=== PATIENT | male | born 1935 | race Caucasian/White ===

== ENCOUNTER → 2016-04-28 | Outpatient (REF) | payer MEDICARE, MEDICAID ==
[~2016-04-28] MED LIST: /TAMS4CA PO; ACET50TA PO; ACET650S3 PR; ALLO300T OR; AMLO10TA PO; ASPI1TAB PO; ASPI81TA83 OR; ATEN25TA OR; ATEN25TA PO; BACITAB3 PO; BISA10SU4 PR; BISAC5TA PO; CALC1CAP31 PO; CARV6.25 PO; CEPA3LOZ PO; CETI10TA PO; CLONI1TA PO; CLONIDINE PO; CORE3.12 PO; DULC5TAB PO; EMLA2.5C TOP; ENEMENE3 PR; FERR140T PO; FIRS1SOL3 PO; FLOM5CAP PO; GABA-279 PO; GLIP5TAB15 PO; GLIP5TAB2 PO; GLIP5TAB8 PO; GLUC5TAB3 PO; HYDR-4266 PO; HYDR100T13 PO; HYDR50TA PO; IBUP200C PO; IPRASOL4 NEB; ISOS1TAB12 PO; KEFL500C7 PO; LASI40TA PO; LASIX PO; LEVO25TA2 OR; LEVO25TA5 PO; LOVAZA PO; MAGN250T9 PO; MICR10CA PO; MUCI600T34 PO; MULTIVIT PO; NEPHTAB PO; NEPRLIQ PO; NITR4TASL SL; NITRO PO; NITRSPR10 TL; OMAC1CA PO; OMEG100011 PO; OMEP20CA3 PO; PERCOCET PO; PLAV75TA2 OR; PROS5TAB PO; PROSCAR PO; PROTPAK PO; RED YEAST RICE PO; REDCAP9 PO; RENV2TAB PO; SENN8.6T8 PO; SENO8.6T10 PO; TAMS0.4C2 PO; TENO25TA PO; TUSSLIQ PO; TYLE325T5 PO; TYLE650T30 PO; VENO20IN IV; VESI5TAB PO; VITA20008 PO; VITAMIN D PO; VITMTA PO; ZETI10TA OR; ZETI10TA2 PO; ZYLO300T PO; [UNRECOGNIZED DRUG - CODE] PO; [UNRECOGNIZED DRUG - CODE] PR; aranesp IV; azithromycin OR; isordil PO; novolog insulin SQ
== END ==
LOC: SKLAB7 08:00
PROVIDERS: ATTEND Family Medicine
DX: E03.9 Hypothyroidism, unspecified (principal)

== ENCOUNTER → 2016-06-23 | Outpatient (REF) | payer MEDICARE, MEDICAID | LOC: SKLAB7 07:00 | PROVIDERS: ATTEND Family Medicine | DX: E11.9 Type 2 diabetes mellitus without complications (principal) ==

== ENCOUNTER → 2016-08-30 | Outpatient (REF) | payer MEDICARE, MEDICAID ==
[2016-08-30 14:41] LABS: ALBUMIN 2.9 GM/DL (3.2-5.2); ALBUMIN/GLOBULIN RATIO 0.66 (1.00-1.93); BILIRUBIN,TOTAL 0.8 MG/DL (0.2-1.0); CALCIUM LEVEL 8.5 MG/DL (8.8-10.2); CREATININE FOR GFR 7.04 MG/DL (0.70-1.30); POTASSIUM SERUM 3.5 MEQ/L (3.5-5.1); TOTAL PROTEIN 7.3 GM/DL (6.4-8.2)
[2016-08-30 15:35] LABS: BASO # 0.1 K/mm3 (0.0-0.2); BASO % 0.5 % (0.0-1.0); EOS % 0.3 % (0.0-3.0); LARGE UNSTAINED CELL # 0.2 K/mm3 (0.0-0.4); LARGE UNSTAINED CELL % 1.3 % (0.0-4.0); LYMPH % 7.8 % (24.0-44.0); MEAN CORPUSCULAR HEMOGLOBIN 31.4 pg (27.0-33.0); MEAN CORPUSCULAR HGB CONC 33.3 g/dl (32.0-36.5); MEAN CORPUSCULAR VOLUME 94.2 fl (80.0-96.0); MONO # 0.9 K/mm3 (0.0-0.8); MONO % 7.2 % (0.0-5.0); NEUTROPHILS # 10.8 K/mm3 (1.8-7.7); NEUTROPHILS % 82.8 % (36.0-66.0); PLATELET COUNT, AUTOMATED 182 k/mm3 (150-450); RED CELL DISTRIBUTION WIDTH 14.3 % (11.5-14.5)
== END ==
LOC: SKLAB7 13:37
PROVIDERS: ATTEND Family Medicine
DX: R50.9 Fever, unspecified (principal)

== ENCOUNTER → 2016-09-01 | Outpatient (REF) | payer MEDICARE, MEDICAID | LOC: SKLAB7 15:22 | PROVIDERS: ATTEND Family Medicine | DX: R19.7 Diarrhea, unspecified (principal) ==

== ENCOUNTER → 2016-09-22 | Outpatient (REF) | payer MEDICARE, MEDICAID | LOC: SKLAB7 08:00 | PROVIDERS: ATTEND Family Medicine | DX: E11.9 Type 2 diabetes mellitus without complications (principal); E78.5 Hyperlipidemia, unspecified ==

== ENCOUNTER → 2016-10-27 | Outpatient (REF) | payer MEDICARE, MEDICAID ==
[~2016-10-27] MED LIST changes: +BACITAB PO; -BACITAB3 PO; +ENEMENE16 PR; -ENEMENE3 PR; +GLIP1TAB49 PO; -GLIP5TAB15 PO; +HYDR-3910 PO; -HYDR-4266 PO; -IBUP200C PO; +IBUP200C10 PO; +KEFL500C17 PO; -KEFL500C7 PO; -MUCI600T34 PO; +MUCI600T37 PO; -VESI5TAB PO; +VESI5TAB2 PO; -ZETI10TA2 PO; +ZETI10TA30 PO
== END ==
LOC: SKLAB7 07:00
PROVIDERS: ATTEND Family Medicine
DX: E03.9 Hypothyroidism, unspecified (principal); E55.9 Vitamin D deficiency, unspecified

== ENCOUNTER → 2016-12-27 | Outpatient (REF) | payer MEDICARE, MEDICAID | LOC: SKLAB7 13:41 | PROVIDERS: ATTEND Family Medicine | DX: Z12.5 Encounter for screening for malignant neoplasm of prostate (principal) | CPT/HCPCS: 36415; G0103 ==

== ENCOUNTER → 2016-12-28 | Outpatient (CLI) | payer MEDICARE, MEDICAID ==
--- NOTE | 2016-12-29 09:39 | RADONC ---
RADIATION ONCOLOGY FOLLOWUP NOTE DATE: 12/28/2016 CHART NUMBER: [id number] DIAGNOSIS: Prostate cancer stage II, [id number]. ECOG PERFORMANCE STATUS: 3. FOLLOWUP NOTE: Mr. Shirley is a very pleasant 81-year-old white male with the diagnosis of a stage II, [id number], moderately differentiated [place] score 6 (3-3) adenocarcinoma of the prostate who is presenting to us today for routine followup visit 6 years and 5 months post completion of external beam radiation therapy. The patient presents today reporting that he is doing quite well with no complaints at this time related to his radiation therapy or disease. He continues to have physical limitations and remains in a wheelchair and in a chcf. He has a diagnosis of congestive heart failure as well as kidney failure. He is on dialysis. The patient has no complaints related to radiation. The patient's review of systems is positive for kidney failure requiring dialysis. He is also complaining of weakness, weight loss, the need for a wheelchair and a chcf. He denies nausea, vomiting, fevers, chills, night sweats, diplopia, headaches, anxiety, depression, visual disturbances, chest pain, bone pain or neurological problems. PHYSICAL EXAMINATION: The patient is a chronically ill-appearing white male who is presenting in a wheelchair. HEENT exam is normocephalic, atraumatic. Extraocular movements are intact. There is no palpable cervical, supraclavicular, infraclavicular, axillary, or inguinal lymphadenopathy present. His lungs are clear to auscultation and percussion. His heart has a regular rate and rhythm. His abdomen is benign with no hepatosplenomegaly, masses or tenderness. Rectal examination was deferred as was the rest of the physical exam. The patient is clinically SALVADOR at this time. He is being discharged from our followup except on a p.r.n. basis. He will continue to be followed by his other physicians in the meantime. cc: MD Chaz Jade MD
== END ==
LOC: M ONCR 14:13
PROVIDERS: ATTEND Radiology Radiation Oncology
DX: C61 Malignant neoplasm of prostate (principal)

== ENCOUNTER → 2016-12-29 | Outpatient (REF) | payer MEDICARE, MEDICAID | LOC: SKLAB7 07:49 | PROVIDERS: ATTEND Family Medicine | DX: E11.9 Type 2 diabetes mellitus without complications (principal) ==

== ENCOUNTER 2017-03-17 06:26 | Emergency (ER) | payer MEDICARE, MEDICAID ==
[~2017-03-17] VITALS: Ht 182.9 cm; Wt 77.7 kg
[2017-03-17 07:58] LABS: BASO # 0.1 10^3/uL (0.0-0.2); BASO % 0.5 % (0.0-1.0); EOS # 0.1 10^3/uL (0.0-0.50); EOS % 1.2 % (0.0-3.0); IMMATURE GRANULOCYTE % 0.7 % (0-0); LYMPH # 1.4 10^3/uL (1.5-4.5); LYMPH % 15.2 % (24.0-44.0); MEAN CORPUSCULAR HEMOGLOBIN 29.2 pg (27.0-33.0); MEAN CORPUSCULAR HGB CONC 31.7 g/dl (32.0-36.5); MEAN CORPUSCULAR VOLUME 91.9 fl (80.0-96.0); MONO # 0.8 10^3/uL (0.0-0.8); MONO % 8.1 % (0.0-5.0); NEUTROPHILS % 74.3 % (36.0-66.0); PLATELET COUNT, AUTOMATED 186 10^3/uL (150-450); RED CELL DISTRIBUTION WIDTH 16.1 % (11.5-14.5); WHITE BLOOD COUNT 9.4 10^3/uL (4.0-10.0)
--- NOTE | 2017-03-17 08:11 | REP ---
Portable chest, 07:50 a.m., AP view the patient semi upright: Comparison is 04/10/2015. There is chronic elevation of the right hemidiaphragm with under aeration of the lung field. These findings are unchanged. Cardiac size appears mildly enlarged, however there has magnification from portable positioning. This is unchanged. The visible portion of the left lung is clear. The prosper, mediastinum, and bony thorax are unremarkable. Impression: There is no significant interval change. There are no acute cardiopulmonary findings. Signed by Narciso Vernon MD 03/17/2017 08:03 A
[2017-03-17 08:45] LABS: ALBUMIN 2.7 GM/DL (3.2-5.2); ALBUMIN/GLOBULIN RATIO 0.57 (1.00-1.93); BILIRUBIN,DIRECT 0.1 MG/DL (0.0-0.2); BILIRUBIN,TOTAL 0.5 MG/DL (0.2-1.0); CALCIUM LEVEL 8.8 MG/DL (8.8-10.2); CREATININE FOR GFR 7.44 MG/DL (0.70-1.30); GLOMERULAR FILTRATION RATE 7.5 (>35); POTASSIUM SERUM 4.2 MEQ/L (3.5-5.1); TOTAL PROTEIN 7.4 GM/DL (6.4-8.2)
[2017-03-17] MEDS ORDERED: CEFD1CAP8 PO (11:05)
[2017-03-17 11:09] VITALS: BP 134/63
--- NOTE | 2017-03-18 17:22 | IPN ---
DATE OF SERVICE: 03/17/2017 The patient was sent to the emergency room from dialysis due to some concerns about his mental status and being groggy, and he apparently had a fever the night before. In the emergency room he was evaluated and was afebrile with stable vital signs. Blood work revealed no leukocytosis. His blood work otherwise was unremarkable with the exception of his elevated BUN and creatinine, which is to be expected for an end-stage renal disease patient. He had a negative flu swab and an unremarkable chest x-ray. His symptoms and exam did not reveal any clear source for an infectious process, and when I saw him in the emergency room he was awake, alert, conversant, and followup commands. There were no abnormalities on exam. No open skin wounds. His lungs were clear. The patient has an active medical order for life-sustaining treatment (MOLST) form that clearly states that he is not to be hospitalized unless his situation is severe, and also he is a DO NOT RESUSCITATE/DO NOT INTUBATE with comfort measures. The case was discussed with Dr. Eli, who felt that he could undergo dialysis today, but he wanted him to be given antibiotics empirically to cover for a possible infection, and he has had blood cultures obtained, which Dr. Troy has agreed to follow over the weekend. In the meantime he was discharged directly to dialysis and will be getting cefdinir after dialysis every other day, 300 mg.
--- NOTE | 2017-03-19 07:21 | ECGEPIP ---
Stationary ECG Study [facility] - ED Test Date: 2017-03-17 Pat Name: CHEKO HAWK Department: Room: - Gender: M Chief Compliance Officer: sb : 1935 Requested By: AMI Langley Order Number: [id number] Reading MD: Quang Gutierrez Measurements Intervals [place] Rate: 61 P: [place]: 0 QRS: -33 QRSD: 110 T: 133 QT: 495 QTc: 503 Interpretive Statements SINUS RHYTHM WITH FIRST DEGREE AV BLOCK LEFT AXIS DEVIATION LVH WITH STRAIN PATTERN SIMILAR TO 10/15/16 Electronically Signed On 03-19-2017 7:21:06 EST by Quang Gutierrez
== END 2017-03-17 12:17 | disposition home or self-care (01) ==
LOC: M ED 06:26
DX: N18.6 End stage renal disease (principal); I50.9 Heart failure, unspecified; E11.9 Type 2 diabetes mellitus without complications; I13.2 Hypertensive heart and chronic kidney disease with heart failure and with stage 5 chronic kidney disease, or end stage renal disease; Z79.82 Long term (current) use of aspirin; Z79.899 Other long term (current) drug therapy; Z99.2 Dependence on renal dialysis; Z86.2 Personal history of diseases of the blood and blood-forming organs and certain disorders involving the immune mechanism; Z86.19 Personal history of other infectious and parasitic diseases; Z87.19 Personal history of other diseases of the digestive system; Z66 Do not resuscitate

== ENCOUNTER → 2017-03-30 | Outpatient (REF) | payer MEDICARE, MEDICAID ==
[~2017-03-30] MED LIST changes: +CEFD1CAP8 PO
== END ==
LOC: SKLAB7 07:00
PROVIDERS: ATTEND Family Medicine
DX: E11.9 Type 2 diabetes mellitus without complications (principal); E78.5 Hyperlipidemia, unspecified

== ENCOUNTER → 2017-04-27 | Outpatient (REF) | payer MEDICARE, MEDICAID | LOC: SKLAB7 07:00 | DX: E03.9 Hypothyroidism, unspecified (principal) | CPT/HCPCS: 84443 ==

== ENCOUNTER → 2017-05-11 | Outpatient (REF) | payer MEDICARE, MEDICAID ==
[2017-05-11 14:53] LABS: BASO # 0.1 10^3/uL (0.0-0.2); BASO % 1.3 % (0.0-1.0); EOS # 0.3 10^3/uL (0.0-0.50); EOS % 4.6 % (0.0-3.0); HEMOGLOBIN 11.1 g/dl (14.0-18.0); IMMATURE GRANULOCYTE # 0.1 10^3/uL (0-0); IMMATURE GRANULOCYTE % 0.8 % (0-0); LYMPH # 0.9 10^3/uL (1.5-4.5); LYMPH % 14.9 % (24.0-44.0); MEAN CORPUSCULAR HEMOGLOBIN 29.4 pg (27.0-33.0); MEAN CORPUSCULAR HGB CONC 31.7 g/dl (32.0-36.5); MEAN CORPUSCULAR VOLUME 92.8 fl (80.0-96.0); MONO # 0.6 10^3/uL (0.0-0.8); MONO % 9.8 % (0.0-5.0); NEUTROPHILS # 4.3 10^3/uL (1.8-7.7); NEUTROPHILS % 68.6 % (36.0-66.0); PLATELET COUNT, AUTOMATED 228 10^3/uL (150-450); RED BLOOD COUNT 3.77 10^6/uL (4.30-6.10); RED CELL DISTRIBUTION WIDTH 15.3 % (11.5-14.5); WHITE BLOOD COUNT 6.3 10^3/uL (4.0-10.0)
[2017-05-11 16:18] LABS: ALBUMIN 2.7 GM/DL (3.2-5.2); ALBUMIN/GLOBULIN RATIO 0.64 (1.00-1.93); ALKALINE PHOSPHATASE 154 U/L (45-117); ALT/SGPT 33 U/L (12-78); AMYLASE 49 U/L (25-115); ANION GAP 10 MEQ/L (8-16); AST/SGOT 24 U/L (7-37); BILIRUBIN,TOTAL 0.4 MG/DL (0.2-1.0); BLOOD UREA NITROGEN 38 MG/DL (7-18); CALCIUM LEVEL 8.8 MG/DL (8.8-10.2); CARBON DIOXIDE LEVEL 31 MEQ/L (21-32); CHLORIDE LEVEL 99 MEQ/L (98-107); CREATININE FOR GFR 5.99 MG/DL (0.70-1.30); GLOMERULAR FILTRATION RATE 9.6 (>35); GLUCOSE, FASTING 229 MG/DL (70-100); POTASSIUM SERUM 4.9 MEQ/L (3.5-5.1); SODIUM LEVEL 140 MEQ/L (136-145); TOTAL PROTEIN 6.9 GM/DL (6.4-8.2)
== END ==
LOC: SKLAB7 13:40
DX: R10.9 Unspecified abdominal pain (principal)
CPT/HCPCS: 74018

== ENCOUNTER → 2017-05-22 | Outpatient (REF) | payer MEDICARE, MEDICAID ==
[2017-05-23 14:40] LABS: INFLUENZA A AMPLIFICATION NEGATIVE (NEGATIVE); INFLUENZA B AMPLIFICATION NEGATIVE (NEGATIVE); RSV AMPLIFICATION POSITIVE (NEGATIVE)
== END ==
LOC: SKLAB7 16:10
DX: R09.81 Nasal congestion (principal); R05 Cough
CPT/HCPCS: 87502

== ENCOUNTER → 2017-05-22 | Outpatient (REF) | payer MEDICARE, MEDICAID | LOC: M RAD 16:56 | DX: R07.89 Other chest pain (principal) | CPT/HCPCS: 71046 ==

== ENCOUNTER → 2017-05-30 | Outpatient (CLI) | payer MEDICARE, MEDICAID | LOC: M ST 08:32 | DX: R13.13 Dysphagia, pharyngeal phase (principal) | CPT/HCPCS: 74230 ==

== ENCOUNTER → 2017-06-22 | Outpatient (REF) | payer MEDICARE, MEDICAID ==
[2017-06-22 09:09] LABS: ESTIMATED AVERAGE GLUCOSE 163 MG/DL (60-110); HEMOGLOBIN A1c 7.3 %
== END ==
LOC: SKLAB7 11:13
DX: E11.9 Type 2 diabetes mellitus without complications (principal)
CPT/HCPCS: 83036

== ENCOUNTER 2017-08-15 15:25 | Outpatient (REF) | payer MEDICARE, MEDICAID | END 2017-08-17 | LOC: SKLAB7 15:25 | DX: R19.7 Diarrhea, unspecified (principal) ==

== ENCOUNTER → 2017-09-06 | Outpatient (REF) | payer MEDICARE, MEDICAID ==
[2017-09-06 11:21] LABS: HEMATOCRIT 34.7 % (42.0-52.0); HEMOGLOBIN 11.1 g/dl (13.5-17.5); MEAN CORPUSCULAR HEMOGLOBIN 29.8 pg (27.0-33.0); PLATELET COUNT, AUTOMATED 222 10^3/uL (150-450); RED BLOOD COUNT 3.73 10^6/uL (4.30-6.10); RED CELL DISTRIBUTION WIDTH 15.1 % (11.5-14.5)
== END ==
LOC: SKLAB7 10:15
DX: N18.6 End stage renal disease (principal); E03.9 Hypothyroidism, unspecified; I12.0 Hypertensive chronic kidney disease with stage 5 chronic kidney disease or end stage renal disease; E11.9 Type 2 diabetes mellitus without complications
CPT/HCPCS: 85027

== ENCOUNTER → 2017-09-07 | Outpatient (REF) | payer MEDICARE, MEDICAID ==
[2017-09-07 07:57] LABS: HEMATOCRIT 30.7 % (42.0-52.0); HEMOGLOBIN 9.8 g/dl (13.5-17.5); MEAN CORPUSCULAR HEMOGLOBIN 29.3 pg (27.0-33.0); MEAN CORPUSCULAR HGB CONC 31.9 g/dl (32.0-36.5); MEAN CORPUSCULAR VOLUME 91.9 fl (80.0-96.0); PLATELET COUNT, AUTOMATED 219 10^3/uL (150-450); RED BLOOD COUNT 3.34 10^6/uL (4.30-6.10); RED CELL DISTRIBUTION WIDTH 15.1 % (11.5-14.5); WHITE BLOOD COUNT 6.8 10^3/uL (4.0-10.0)
== END ==
LOC: SKLAB7 06:56
DX: E55.9 Vitamin D deficiency, unspecified (principal)
CPT/HCPCS: 36415

== ENCOUNTER → 2017-10-26 | Outpatient (REF) | payer MEDICARE, MEDICAID ==
[2017-10-26 11:17] LABS: TOTAL 25(OH) VITAMIN D 69.1 NG/ML (30.0-100.0)
== END ==
LOC: SKLAB7 08:00
DX: E03.9 Hypothyroidism, unspecified (principal); E55.9 Vitamin D deficiency, unspecified
CPT/HCPCS: 84443

== ENCOUNTER → 2017-12-05 | Outpatient (REF) | payer MEDICARE, MEDICAID ==
[2017-12-05 12:00] LABS: HEMATOCRIT 29.2 % (42.0-52.0); HEMOGLOBIN 9.1 g/dl (13.5-17.5); MEAN CORPUSCULAR HEMOGLOBIN 27.7 pg (27.0-33.0); MEAN CORPUSCULAR HGB CONC 31.2 g/dl (32.0-36.5); MEAN CORPUSCULAR VOLUME 88.8 fl (80.0-96.0); PLATELET COUNT, AUTOMATED 307 10^3/uL (150-450); RED BLOOD COUNT 3.29 10^6/uL (4.30-6.10); RED CELL DISTRIBUTION WIDTH 16.1 % (11.5-14.5); WHITE BLOOD COUNT 13.1 10^3/uL (4.0-10.0)
[2017-12-05 12:22] LABS: ANION GAP 9 MEQ/L (8-16); BLOOD UREA NITROGEN 39 MG/DL (7-18); CALCIUM LEVEL 8.6 MG/DL (8.8-10.2); CARBON DIOXIDE LEVEL 34 MEQ/L (21-32); CHLORIDE LEVEL 98 MEQ/L (98-107); CREATININE FOR GFR 4.85 MG/DL (0.70-1.30); GLOMERULAR FILTRATION RATE 12.3 (>35); GLUCOSE, FASTING 180 MG/DL (70-100); POTASSIUM SERUM 4.4 MEQ/L (3.5-5.1); SODIUM LEVEL 141 MEQ/L (136-145)
== END ==
LOC: SKLAB7 10:18
DX: R50.9 Fever, unspecified (principal); R53.83 Other fatigue; K62.5 Hemorrhage of anus and rectum
CPT/HCPCS: 71045

== ENCOUNTER → 2017-12-06 | Outpatient (REF) | payer MEDICARE, MEDICAID | LOC: SKLAB7 08:55 | DX: K62.5 Hemorrhage of anus and rectum (principal) | CPT/HCPCS: 82270 ==